=== PATIENT | female | born 1955 | race Caucasian/White ===

== ENCOUNTER 2017-04-28 08:47 | Day surgery (SDC) | payer OTHER, MEDICAID ==
[2017-04-28] MEDS ORDERED: MIDAZOLAM 1 MG/ML 2 ML INJ ×3 (11:48)
[2017-04-28] MEDS ORDERED: FENTAnyl 50 MCG/ML VIAL (11:48)
== END 2017-04-28 14:50 | disposition home or self-care (01) ==
LOC: GIL 08:47
DX: K51.30 Ulcerative (chronic) rectosigmoiditis without complications (principal); I10 Essential (primary) hypertension
CPT/HCPCS: 45380; 88305